=== PATIENT | male | born 1950 | race Caucasian/White ===

== ENCOUNTER 2021-03-01 11:19 | Outpatient (CLI) | payer MEDICARE, SELFPAY ==
[2021-03-01 11:57] LABS: Platelet Count 175 X10^3/uL (150-400)
[2021-03-01 12:05] LABS: Prothrombin Time 11.6 SECONDS (10.1-12.7)
[2021-03-01 12:07] LABS: PTT Partial Thromboplastin Tim 33 SECONDS (26.4-36.2)
[2021-03-01 12:32] VITALS: BP 153/74; PULSE 55; RESP 18; TEMP 36.4; O2SAT 100; BMI 22.1
[2021-03-01 13:09] VITALS: BP 142/100; PULSE 63; RESP 16; O2SAT 100
[2021-03-01 13:13] VITALS: BP 142/74; PULSE 71; RESP 14; O2SAT 98
[2021-03-01 13:28] VITALS: BP 157/70; PULSE 69; RESP 16; O2SAT 100
[2021-03-01 13:37] VITALS: BP 154/79; PULSE 53; RESP 16; O2SAT 100
--- NOTE | 2021-03-01 14:10 | SUR.PHASEII ---
After multiple attempts to access patients spine, procedure was aborted because of too much hardware present from previous spine surgeries. IV was removed. Pt was permitted to dress and ride was called. Pt was permitted to ambulate on his own to ER entrance and await for his ride as not medications were given.
== END 2021-03-01 14:08 | disposition home or self-care (01) ==
LOC: OR 11:28
PROVIDERS: Radiology Diagnostic Radiology; Referring Provider Physician Assistant; Visit Provider Physician Assistant
DX: M47.816 Spondylosis without myelopathy or radiculopathy, lumbar region (principal); R79.1 Abnormal coagulation profile; I50.9 Heart failure, unspecified; Z53.09 Procedure and treatment not carried out because of other contraindication
CPT/HCPCS: 62284; 36415; 72126; 72132; 85014; 85049; 85610; 85730

== ENCOUNTER 2021-03-12 07:54 | Outpatient (CLI) | payer MEDICARE, SELFPAY ==
[2021-03-12] VITALS (13 sets, daily range): BP systolic 127–154; BP diastolic 68–79; PULSE 49–61; RESP 15–18; TEMP 36.2–37.1; O2SAT 52–100; BMI 22.1
--- NOTE | 2021-03-12 | DI.CT.S_ITS ---
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 Sagittal and coronal reformats were then constructed. For radiation dose reduction, the following was used: automated exposure control, adjustment of mA and/or kV according to patient size. COMPARISON: [facility], CT, CT LUMBAR SPINE W CON, 03/12/2021, 10:38. [facility], CT, CT THORACIC SPINE W CON, 03/12/2021, 10:38. [facility], [place], [place] MEYELOGRAM SPINE CERVICAL, 03/12/2021, 9:11. FINDINGS: Image quality: Excellent. Bones and alignment: Spinal alignment is normal. No acute fractures. No suspicious bony lesions. Soft tissues: No paraspinal masses. Prevertebral soft tissues are normal in thickness. Visualized neck vasculature appears normal in size. Anterior fixation hardware is seen C5 through C7. The fusion plate appears well seated. The screws are well placed. Disc spacers are seen at C5-C6 and C6-C7. No findings of hardware failure or hardware loosening are seen. C2-C3: Zoth-va-yueacett loss of disc height is seen. Mild to moderate disc osteophyte complex is seen, which is eccentric to the right, with a right foraminal disc osteophyte protrusion seen. There is prominent right-sided facet hypertrophy seen, with a degree of fusion seen. There is mild left-sided facet hypertrophy seen. There is moderate to severe right-sided and no significant left-sided neural foraminal narrowing seen. The central canal is widely patent. C3-C4: There is moderate to severe loss of disc height. Vacuum disc phenomenon is seen at this level. Endplate irregularity and sclerosis can be seen. Uncovertebral joint hypertrophy is seen at this level. Posteriorly projected endplate osteophytes are seen. Moderate facet joint hypertrophy is seen. Moderate to severe bilateral neural foraminal narrowing can be seen. Mild central canal narrowing is seen. C4-C5: Moderate to severe loss of disc height is seen. Vacuum disc phenomenon is seen at this level. Endplate irregularity and sclerosis can be seen. Posteriorly projected endplate osteophytes are seen. Uncovertebral joint hypertrophy is seen at this level. There is moderate to severe bilateral neural foraminal narrowing seen. Moderate to severe central canal narrowing is seen, with associated ventral cord flattening. C5-C6: Fusion changes are seen at this level. Moderate disc osteophyte complex is seen, with a central disc osteophyte protrusion. Moderate bilateral neural foraminal narrowing is seen. Moderate central canal narrowing is seen. There is associated mass effect upon the ventral spinal cord. C6-C7: There are postoperative changes seen at this level. Moderate generalized disc osteophyte complex is seen. Moderate to severe bilateral neural foraminal narrowing can be seen. Mild central canal narrowing is seen. C7-T1: At least moderate loss of disc height is seen. A mild degree of generalized disc osteophyte complex is seen. There is wjdd-ay-dclxcvzi right-sided and minimal left-sided neural foraminal narrowing seen. No significant central canal narrowing is seen. Miscellaneous: Visualized intracranial structures appear unremarkable. IMPRESSION: Degenerative changes are seen, which are worst at C3-C4 and C4-C5. Intact C5-C7 anterior fixation hardware. Dictated by: Arvin Ribera M.D. on 03/12/2021 at 12:57 Approved by: Arvin Ribera M.D. on 03/12/2021 at 13:02
--- NOTE | 2021-03-12 | DI.CT.S_ITS ---
PROCEDURE: CT LUMBAR SPINE W CON INDICATIONS: SPODYLOSIS WITHOUT MYELOPATHY OR RADICULOPATHY TECHNIQUE: After the intrathecal administration of 15 mL intrathecal contrast, 3 mm thick sections acquired from T12 to the sacrum. Sagittal and coronal reformats were then constructed. For radiation dose reduction, the following was used: automated exposure control. COMPARISON: None. FINDINGS: Image quality: Excellent. Bones: Spinal alignment is normal. No spondylolysis or spondylolisthesis. No suspicious bony lesions. No acute fractures. Discectomy and fusion with cage graft at L3-4 and L4-5 is associated with posterior herlinda and screw instrumentation at L3, L4 and L5. Right-sided subcutaneous pulse generator noted extending into the thoracic spine Soft tissues: As above. No retroperitoneal masses. Visualized aorta demonstrates normal caliber. Atherosclerotic calcification in the abdominal aorta noted without evidence of aneurysm. T12-L1: Mild disc space narrowing and hypertrophic facet joints present. No central or foraminal stenosis. L1-L2: Severe disc space narrowing with degenerative endplate changes and circumferential disc bulge. Mild retrolisthesis of L1 over L2. There is crowding of the nerve roots and moderate central stenosis present. Severe bilateral foraminal stenosis noted. L2-L3: Moderate disc space narrowing and circumferential disc bulge with posterior osteophyte results in moderate central stenosis. Severe right and moderate left foraminal stenosis present. L3-L4: Discectomy and fusion. Central canal widely patent. There has been a left-sided foraminotomy and medial facetectomy no central stenosis. No foraminal stenosis. L4-L5: Discectomy and fusion. Right facetectomy. No central stenosis. No foraminal stenosis present. L5-S1: Disc height is preserved. No central or foraminal stenosis. IMPRESSION: 1. Multilevel degenerative disc disease and arthropathy resulting in varying degrees of central and foraminal stenosis including moderate stenosis and crowding of the nerve roots at L1-2 2. L3-4 and L4-5 interbody fusion with posterior herlinda and screw instrumentation Dictated by: Jean-Claude Cary M.D. on 03/12/2021 at 18:14 Approved by: Jean-Claude Cary M.D. on 03/12/2021 at 18:27
--- NOTE | 2021-03-12 | DI.RAD.S_ITS ---
PROCEDURE: [place] MEYELOGRAM SPINE CERVICAL COMPARISON: [facility], CT, CT LUMBAR SPINE W CON, 03/12/2021, 10:38. 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 The patient was placed prone on the table. Initial images were obtained in a suitable skin entry site was selected. The area was cleaned , prepped and draped in the usual sterile fashion. 1% lidocaine was used for local anesthesia. Under fluoroscopic guidance, a 22 gauge spinal needle was advanced into the thecal sac and clear CSF was returned. Then, 10 cc of Omnipaque -300 M was injected and the fluoroscopy table was tilted to position the contrast column throughout the cervical, thoracic and lumbar spine. The patient was then transferred to the CT for scanning. Fluoroscopic images demonstrate contrast within the thecal sac outlining nerve roots. IMPRESSION: Technically successful fluoroscopically guided lumbar puncture and injection for CT myelogram. Dictated by: Trent Flores M.D. on 03/12/2021 at 13:03 Approved by: Trent Flores M.D. on 03/12/2021 at 13:17
--- NOTE | 2021-03-12 | DI.CT.S_ITS ---
PROCEDURE: CT THORACIC SPINE W CON INDICATIONS: Spodylosis without myelopathy or radiculopathy TECHNIQUE: After the administration of 10 mL intrathecal contrast, 3 mm thick sections acquired through the region of interest in the thoracic spine. Sagittal and coronal reformats were then constructed. For radiation dose reduction, the following was used: automated exposure control. COMPARISON: [facility], CT, CT LUMBAR SPINE W CON, 03/12/2021, 10:38. [facility], CT, CT CERVIAL SPINE W CON, 03/12/2021, 10:38. FINDINGS: Image quality: Excellent. Cervical fusion is present from C5 through C7. Hardware is intact. There is no visualized fracture or dislocation within the visualized osseous structures of the cervical, thoracic and lumbar spine. No suspicious osseous lesions. Multilevel moderate to severe disc disc space narrowing is present. Nerve stimulator is noted at the level of T8. Multilevel anterior osteophytes are present with bridging osteophytes most prominent from T5 through T10. Minimal disc bulges present T1-2, T2-3, T4-5, T5-6, T6-7, T10-11. Minimal left foraminal narrowing is noted at T1-2, [id number]-zuvomxoh left and mild right T10-11, ysyu-xk-dpicakpj bilateral T11-12, minimal to mild left T12-L1. There is minimal effacement the anterior thecal sac at T2-3 T10-11. No gross spinal stenosis. Visualized portions of the as well as mediastinum and upper abdomen are unremarkable. IMPRESSION: 1. Multilevel mild disc bulges are present. 2. Minimal effacement of the anterior thecal sac as above without gross spinal stenosis. 3. Multilevel overall mild foraminal narrowing as above. Dictated by: Cecy England M.D. on 03/12/2021 at 15:53 Approved by: Cecy England M.D. on 03/12/2021 at 16:03
[2021-03-12 08:53] LABS: Hematocrit 40.5 % (41-53); Platelet Count 171 X10^3/uL (150-400)
== END 2021-03-12 12:29 | disposition home or self-care (01) ==
PROVIDERS: Radiology Diagnostic Radiology; Referring Provider Physician Assistant; Visit Provider Physician Assistant
DX: M47.816 Spondylosis without myelopathy or radiculopathy, lumbar region (principal); G54.8 Other nerve root and plexus disorders
CPT/HCPCS: 36415; 61055; 72126; 72129; 72132; 72240; 85014; 85049